=== PATIENT | female | born 1990 | race Hispanic/Latino ===

== ENCOUNTER 2019-04-26 20:12 | Emergency (ER) | payer SELFPAY ==
[~2019-04-26 20:12] MED LIST: PNV91TAB3 PO
== END 2019-04-26 21:03 | disposition home or self-care (01) ==
LOC: EDH 20:12
DX: J20.9 Acute bronchitis, unspecified (principal); Z98.890 Other specified postprocedural states; Z87.891 Personal history of nicotine dependence

== ENCOUNTER 2023-10-20 20:18 | Emergency (ER) | payer OTHER ==
[~2023-10-20] VITALS: Ht 170.2 cm; Wt 121.6 kg
[2023-10-20 22:38] VITALS: BP 134/80; PULSE 74; RESP 20; O2SAT 98
[2023-10-20] MEDS ORDERED: IBUP-2077 PO (23:44)
[2023-10-20] MEDS: IBUPROFEN 800 MG TAB PO ONE (23:51)
[2023-10-20] MEDS: IBUPROFEN 800 MG TAB ONE (23:52)
== END 2023-10-20 23:57 | disposition home or self-care (01) ==
LOC: EDH 20:18
DX: S93.491A Sprain of other ligament of right ankle, initial encounter (principal); S80.02XA Contusion of left knee, initial encounter; S90.01XA Contusion of right ankle, initial encounter; Z98.890 Other specified postprocedural states; W18.39XA Other fall on same level, initial encounter; Y93.89 Activity, other specified; Y92.89 Other specified places as the place of occurrence of the external cause; Y99.8 Other external cause status
CPT/HCPCS: 73562; 73610